=== PATIENT | female | born 1995 | race Caucasian/White ===

== ENCOUNTER 2020-10-11 19:02 | Emergency (ER) | payer OTHER ==
[~2020-10-11] VITALS: Ht 157.5 cm; Wt 65.8 kg
--- NOTE | 2020-10-11 19:21 | NUR ---
PT AAOX4. AMBULATORY WITH STEADY GAIT. BIBSELF C/O L FLANK PAIN AND DYSURIA SINCE LAST NIGHT. PLACED IN BED 2 ON MONITOR AND PULSE OX. NOTED TACHY. ER MD AT BEDSIDE FOR EVAL, AWAITING ORDERS.
[2020-10-11] MEDS ORDERED: KETOROLAC TROMETHAMINE 15 MG/ML VIAL ONE (19:29)
[2020-10-11] MEDS ORDERED: IV NS 0.9% 1,000 ML BAG IV ONE ×2 (19:30→20:00)
[2020-10-11] MEDS ORDERED: KETOROLAC TROMETHAMINE INJ 30 MG/ML VIAL IV ONE (19:30)
[2020-10-11 19:31] LABS: BASOPHILS % (AUTO) 0.2 % (0.0-2.0); EOSINOPHILS % (AUTO) 1.2 % (0.0-6.0); HEMATOCRIT 41 % (33-45); HEMOGLOBIN 13.7 g/dL (11.5-14.8); LYMPHOCYTES # (AUTO) 3.3 K/uL (0.8-4.8); LYMPHOCYTES % (AUTO) 17.2 % (20.0-44.0); MEAN CORPUSCULAR HGB CONC 34 g/dl (31.0-36.0); MEAN CORPUSCULAR VOLUME 90 fL (82-100); MONOCYTES # (AUTO) 1.3 K/uL (0.1-1.30); MONOCYTES % (AUTO) 6.6 % (2.0-12.0); NEUTROPHILS # (AUTO) 14.5 K/uL (1.8-8.9); NEUTROPHILS % (AUTO) 74.8 % (43.0-81.0); PLATELET COUNT (AUTO) 285 K/uL (150-450); RED BLOOD CELL COUNT(AUTO) 4.58 MIL/uL (4.0-5.2); WHITE BLOOD COUNT (AUTO) 19.3 K/uL (4.3-11.0)
[2020-10-11 19:32] LABS: BILIRUBIN,URINE Negative (NEGATIVE); COLOR,URINE YELLOW (YELLOW); LEUKOCYTE ESTERASE ,URINE Moderate (NEGATIVE); NITRITE, URINE Negative (NEGATIVE); PH,URINE 8.5 (5.0-8.0); PROTEIN,URINE 100 mg/dl (NEGATIVE); UGLUCOSE Negative (NEGATIVE); UROBILINOGEN,URINE 0.2 EU/dL (0.2)
[2020-10-11 19:38] LABS: CALCIUM, SERUM 8.4 mg/dL (8.5-10.1); CREATININE 0.9 mg/dL (0.6-1.3); POTASSIUM 3.4 mmol/L (3.5-5.1)
--- NOTE | 2020-10-11 19:38 | NUR ---
BROUGHT TO CT AND BACK
[2020-10-11 19:43] LABS: BACTERIA,URINE Many /HPF (None Seen); SQUAMOUS EPITHELIAL CELL,UR Few /HPF (None Seen)
[2020-10-11] MEDS ORDERED: CEFTRIAXONE 1GM BAG (ER ONLY) 50 ML IV ONE ×2 (19:47→20:00)
[2020-10-11 19:50] LABS: ALBUMIN 3.8 g/dL (3.4-5.0); BILIRUBIN,DIRECT 0.1 mg/dL (0.0-0.2); BILIRUBIN,TOTAL 0.4 mg/dL (0.2-1.0); TOTAL PROTEIN, SERUM 8.2 g/dL (6.4-8.2)
[2020-10-11] MEDS ORDERED: IBUP-1957 PO (20:48)
[2020-10-11] MEDS ORDERED: CEPH500C2 PO (20:48)
--- NOTE | 2020-10-11 21:12 | NUR ---
Patient discharged to home in stable condition. Written and verbal after care instructions given. Patient verbalizes understanding of instruction and RX. Pt ambulated out of ED. VSS. Denies pain.
--- NOTE | 2020-10-11 21:12 | NUR ---
IV removed. Catheter intact and site benign. Pressure and 4x4 applied to site. No bleeding noted.
[2020-10-11 21:13] VITALS: BP 116/62
== END 2020-10-11 21:13 | disposition home or self-care (01) ==
LOC: ER 19:08
DX: N12 Tubulo-interstitial nephritis, not specified as acute or chronic (principal)
CPT/HCPCS: 36415; 74176; 80048; 80076; 81001; 84703; 85025; 87077; 87086; 87186; 96365; 96375; 99284; J0696; J1885; J7030 ×2

== ENCOUNTER 2020-11-09 00:24 | Emergency (ER) | payer OTHER ==
[~2020-11-09] VITALS: Ht 157.5 cm; Wt 65.8 kg
[~2020-11-09 00:24] MED LIST: CEPH500C2 PO; IBUP-1957 PO
[2020-11-09 00:35] VITALS: BP 135/83
== END 2020-11-09 02:38 | disposition home or self-care (01) ==
LOC: ER 00:29
DX: J06.9 Acute upper respiratory infection, unspecified (principal); Z79.899 Other long term (current) drug therapy
CPT/HCPCS: 71045-TC

== ENCOUNTER 2021-05-12 23:46 | Emergency (ER) | payer OTHER ==
[~2021-05-12] VITALS: Ht 157.5 cm; Wt 68.0 kg
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
--- NOTE | 2021-05-13 00:07 | NUR ---
XRAY AT BEDSIDE
[2021-05-13] MEDS ORDERED: IBUPROFEN 400 MG TABLET PO ONE (00:30)
[2021-05-13] MEDS ORDERED: IBUPROFEN 400 MG TABLET ONE (00:33)
[2021-05-13 00:44] VITALS: BP 123/90
--- NOTE | 2021-05-13 00:44 | NUR ---
Patient discharged to home in stable condition. Written and verbal after care instructions given. Patient verbalizes understanding of instruction.
== END 2021-05-13 00:48 | disposition home or self-care (01) ==
LOC: ER 23:49
DX: S60.042A Contusion of left ring finger without damage to nail, initial encounter (principal); S60.032A Contusion of left middle finger without damage to nail, initial encounter; Z79.1 Long term (current) use of non-steroidal anti-inflammatories (NSAID); Z79.899 Other long term (current) drug therapy; W23.0XXA Caught, crushed, jammed, or pinched between moving objects, initial encounter; Y93.89 Activity, other specified; Y92.89 Other specified places as the place of occurrence of the external cause; Y99.8 Other external cause status
CPT/HCPCS: 73140-TC

== ENCOUNTER 2023-01-08 10:32 | Emergency (ER) | payer OTHER ==
[~2023-01-08] VITALS: Ht 154.9 cm; Wt 61.2 kg
[2023-01-08 10:33] VITALS: BP 133/79; TEMP 98.2
[2023-01-08 14:04] VITALS: O2SAT 97
== END 2023-01-08 14:04 | disposition home or self-care (01) ==
LOC: ER 10:38
DX: R05.9 Cough, unspecified (principal)
CPT/HCPCS: 71045-TC